=== PATIENT | male | born 1955 ===

== ENCOUNTER 2017-05-20 09:58 | Outpatient (RCR) | payer BC ==
[~2017-05-20] VITALS: Ht 170.2 cm; Wt 67.6 kg
[2017-05-30] MEDS ORDERED: Neosporin Oint 15gm TOPIC ONE (15:00)
[2017-05-30] MEDS ORDERED: Lidocaine HCl 2% Jelly 5ml Tube TOPIC ONE (15:00)
== END 2017-06-13 | disposition home or self-care (01) ==
LOC: WCC 09:58
DX: L98.492 Non-pressure chronic ulcer of skin of other sites with fat layer exposed (principal); L98.491 Non-pressure chronic ulcer of skin of other sites limited to breakdown of skin; D68.62 Lupus anticoagulant syndrome; Z90.49 Acquired absence of other specified parts of digestive tract; Z95.0 Presence of cardiac pacemaker; N18.6 End stage renal disease; Z99.2 Dependence on renal dialysis; B00.9 Herpesviral infection, unspecified; F17.200 Nicotine dependence, unspecified, uncomplicated; I25.2 Old myocardial infarction; Z86.718 Personal history of other venous thrombosis and embolism; Z79.01 Long term (current) use of anticoagulants; Z79.52 Long term (current) use of systemic steroids; I50.9 Heart failure, unspecified
CPT/HCPCS: 11042; 87070; 87181; 87205; G0463; 99204